=== PATIENT | female | born 1995 | race American Indian/Alaskan Native ===

== ENCOUNTER 2018-08-28 16:18 | Emergency (ER) | payer OTHER ==
[2018-08-28 16:32] VITALS: BP 124/79
--- NOTE | 2018-08-28 16:34 | Emergency Department Report ---
Chief Complaint: Upper Respiratory Infection Stated Complaint: FLU LIKE SYMPTOMS Time Seen by Provider: 08/28/18 16:30 - HPI History of Present Illness: Pt is c/o generalized body aches, subjective fever, sore throat, pain with swallowing, rhinorrhea that began this morning no cough non smoker has not taken any medication afebrile, VSS MSE complete MSE screening note: Focused history and physical exam performed. Due to findings the following was ordered: ED Disposition for MSE Condition: Stable
[2018-08-28] MEDS ORDERED: IBUPROFEN PO ONE (16:51)
--- NOTE | 2018-08-28 16:51 | Emergency Department Report ---
Minor Respiratory - HPI Chief Complaint: Upper Respiratory Infection Stated Complaint: FLU LIKE SYMPTOMS Time Seen by Provider: 08/28/18 16:30 Duration: 1 Day Severity: mild Minor Respiratory: Yes Sore Throat, Yes Able to Tolerate Fluids, Yes Fever (LOW GRADE), No Rhinorrhea, No Ear Pain, No Cough, No Sick Contacts, No Hemoptysis, No Chest Pain, No Shortness of Breath Other History: Patient is a 23-year-old comes to the ER with "cough and congestion. Started during the night. She states that she has a sore, body aches, chills and sweats. She also states that she sneezing. She has no cough. Patient has not taken anything at home prior to coming in. ED Review of Systems ROS: Stated complaint: FLU LIKE SYMPTOMS Other details as noted in HPI Comment: All other systems reviewed and negative Constitutional: see HPI, chills Eyes: denies: eye pain ENT: as per HPI, throat pain Respiratory: denies: cough Cardiovascular: denies: palpitations Endocrine: denies: flushing Gastrointestinal: denies: abdominal pain Genitourinary: denies: urgency Musculoskeletal: denies: back pain Skin: denies: lesions Neurological: denies: headache Psychiatric: denies: depression Hematological/Lymphatic: denies: easy bleeding ED Past Medical Hx - Social History Smoking Status: Never Smoker Substance Use Type: Alcohol Minor Respiratory Exam - Exam General: Vital signs noted. No distress. Alert and acting appropriately. HEENT: Yes Pharyngeal Erythema, Yes Moist Mucous Membranes, No Pharyngeal Exudates, No Rhinorrhea, No Conjuctival Injection, No Frontal Tenderness, No Maxillary Tenderness Ear: Neither TM Bulge, Neither TM Erythema, Neither EAC Pain, Neither EAC Discharge Neck: Yes Supple, No Adenopathy Lungs: Yes Good Air Exchange, No Wheezes, No Ronchi, No Stridor, No Cough, No Labored Respirations, No Retractions, No Use of Accessory Muscles, No Other Abnormal Lung Sounds Heart: Yes Regular, No Murmur Abdomen: Yes Normal Bowel Sounds, No Tenderness, No Peritoneal Signs Skin: No Rash, No Edema Neurologic: Alert and oriented, no deficits. Musculoskeletal: Unremarkable. ED Course Vital Signs 08/28/18 16:30 Temperature 99.3 F Pulse Rate 102 H Blood Pressure 124/79 ED Medical Decision Making - Medical Decision Making SIMPLE URTI Labs 08/28/18 Unknown Influenza A (Rapid) Negative Influenza B (Rapid) Negative Group A Strep Rapid Negative DC HOME WITH OTC SYMPTOM RELIEF AND PCP FOLLOW UP IF NEEDED Vital Signs 08/28/18 16:30 Temperature 99.3 F Pulse Rate 102 H Blood Pressure 124/79 Critical care attestation.: If time is entered above; I have spent that time in minutes in the direct care of this critically ill patient, excluding procedure time. ED Disposition Clinical Impression: Viral respiratory illness Disposition: DC-01 TO HOME OR SELFCARE Is pt being admited?: No Does the pt Need Aspirin: No Condition: Stable Instructions: Upper Respiratory Infection (ED) Additional Instructions: REST HYDRATE WELL WITH WATER OVER THE COUNTER MOTRIN/TYLENOL FOR FEVER OR PAIN OVER THE COUNTER COUGH MED SHOULD YOU GET A COUGH YOU DO NOT NEED ANTIBIOTICS AT THIS TIME FOLLOW UP WITH PCP SHOULD SYMPTOMS PERSIST FLU AND STREP NEG TODAY Referrals: SOPHY OLSEN MD [Staff Physician] - 3-5 Days Time of Disposition: 17:36
== END 2018-08-28 17:49 | disposition home or self-care (01) ==
LOC: ED 16:18
DX: B34.9 Viral infection, unspecified (principal)
CPT/HCPCS: 87116; 87400; 87430